=== PATIENT | female | born 1975 | race Caucasian/White ===

== ENCOUNTER 2016-04-09 16:39 | Emergency (ER) | payer OTHER ==
[2016-04-09 16:43] VITALS: RESP 16; TEMP 97.9
[2016-04-09] MEDS ORDERED: NS 1,000 ML IV ONE (17:05)
[2016-04-09 17:11] LABS: % IMMATURE GRANULYOCYTES 0.4 % (0.0-1.1); ABSOLUTE IMMATURE GRANULOCYTES 0.03 10^3/uL (0.00-0.10); ADD DIFF? NO; ADD MORPH? NO; ADD SCAN? NO; ATYPICAL LYMPHOCYTE FLAG 10 (0-99); FRAGMENT RBC FLAG 0 (0-99); HEMATOCRIT 39.9 % (38.0-47.0); HEMOGLOBIN 14.1 g/dL (12.6-16.3); LEFT SHIFT FLG 0 (0-99); LIPEMIA HEMOLYSIS FLAG 90 (0-99); MEAN CELL HEMOGLOBIN CONCENTR. 35.3 g/dL (32.4-36.7); MEAN CELL VOLUME 87.7 fL (81.5-99.8); MEAN PLATELET VOLUME 10.8 fL (8.7-11.7); PLATELET CLUMPS FLAG 10 (0-99); PLATELET COUNT 243 10^3/uL (150-400); RED BLOOD CELL COUNT 4.55 10^6/uL (4.18-5.33)
--- NOTE | 2016-04-09 17:13 | EDPHY ---
H & P Stated Complaint: ABDOMEN AND BACK PAIN WORSENING SINCE YESTERDAY Time Seen by Provider: 04/09/16 17:05 HPI/ROS: CHIEF COMPLAINT: Suprapubic pain HISTORY OF PRESENT ILLNESS: Patient is a 40-year-old female who comes to the emergency department complaining of suprapubic pain that has been gradually worsening over the last 24 hours. It is constant. It is moderate to severe. She has not had a fever. She has felt nauseous but has not vomited. No diarrhea constipation. No vaginal bleeding or discharge. She had her last menstrual period 17 days ago. She is trying to conceive and took Clomid. No urinary symptoms. No chest pain or shortness of breath. REVIEW OF SYSTEMS: Constitutional: denies: chills, fever, recent illness, recent injury EENTM: denies: blurred vision, double vision, nose congestion Respiratory: denies: cough, shortness of breath Cardiac: denies: chest pain, irregular heart rate, lightheadedness, palpitations Gastrointestinal/Abdominal: See HPI Genitourinary: denies: dysuria, frequency, hematuria, pain Musculoskeletal: denies: joint pain, muscle pain Skin: denies: lesions, rash, jaundice, bruising Neurological: denies: headache, numbness, paresthesia, tingling, dizziness, weakness Hematologic/Lymphatic: denies: blood clots, easy bleeding, easy bruising Immunologic/allergic: denies: HIV/AIDS, transplant EXAM: GENERAL: Well-appearing, well-nourished and in no acute distress. HEAD: Atraumatic, normocephalic. EYES: Pupils equal round and reactive to light, extraocular movements intact, sclera anicteric, conjunctiva are normal. ENT: TMs normal, nares patent, oropharynx clear without exudates. Moist mucous membranes. NECK: Normal range of motion, supple without lymphadenopathy or JVD. LUNGS: Breath sounds clear to auscultation bilaterally and equal. No wheezes rales or rhonchi. HEART: Regular rate and rhythm without murmurs, rubs or gallops. ABDOMEN: Mild suprapubic pain, no tenderness, Soft, normoactive bowel sounds. No guarding, no rebound. No masses appreciated. No pain with leg lift. Genitourinary: No discharge, no bleeding, no cervical motion tenderness, no adnexa masses BACK: No CVA tenderness, no spinal tenderness, step-offs or deformities EXTREMITIES: Normal range of motion, no pitting or edema. No clubbing or cyanosis. NEUROLOGICAL: Cranial nerves II through XII grossly intact. Normal speech, normal gait. 5/5 strength, normal movement in all extremities, normal sensation PSYCH: Normal mood, normal affect. SKIN: Warm, dry, normal turgor, no visible rashes or lesions. Source: Patient Exam Limitations: No limitations - Personal History LMP (Females 10-55): 22-28 Days Ago Current Tetanus Diphtheria and Acellular Pertussis (TDAP): Yes Tetanus Vaccine Date: 08/2014 - Medical/Surgical History Hx Asthma: No Hx Chronic Respiratory Disease: No Hx Diabetes: No Hx Cardiac Disease: No Hx Renal Disease: No Hx Cirrhosis: No Hx Alcoholism: No Hx HIV/AIDS: No Hx Splenectomy or Spleen Trauma: No Other PMH: STRESS RELATED PALPITATIONS, MIGRAINES,DEPRESSION, D & C/ MISCARAGE - Family History Significant Family History: Hypertension - Social History Smoking Status: Never smoked Alcohol Use: Sober Drug Use: None Constitutional: Initial Vital Signs Temperature (C) 36.6 C 04/09/16 16:40 Heart Rate 72 04/09/16 16:40 Respiratory Rate 16 04/09/16 16:40 Blood Pressure 106/74 04/09/16 16:40 O2 Sat (%) 96 04/09/16 16:40 O2 Delivery Mode Room Air Allergies/Adverse Reactions: vancomycin Allergy (Verified 04/09/16 16:43) Home Medications: Medication Instructions Recorded Hydrocodone/APAP 5/325 [[place] 1 - 2 each PO Q4 PRN #14 tab 04/09/16 5/325] No Known Home Meds 04/09/16 metroNIDAZOLE [Flagyl] 500 mg PO BID #14 tab 04/09/16 Medical Decision Making - Diagnostics Imaging: Study: Ultrasound of the: Pelvis Indication: Pelvic pain Results: US scan of the pelvis was obtained. The results of the study are positive for large right-sided ovarian cyst, no torsion. The study was read by the radiologist, Dr. Andrew Heard. I viewed the images myself on the PACS system. ED Course/Re-evaluation: Patient has a normal pelvic exam and normal lab work and urinalysis. I will proceed with ultrasound of her pelvis and appendix. She does not have any right lower quadrant tenderness pain with leg lift. No fever. She was seen by her OB earlier today who did not think that the Clomid most likely to be causing her pain. She finished it on day 9 after last menstrual period.. 7:25 p.m. the patient has a large ovarian cyst. This is likely the cause of her pain in the setting of Clomid also she has bacterial vaginosis. I will treat her with Flagyl. She continues to decline pain medication. Discussed follow up with OBGYN and indications for returning. She is happy with this plan and declines further workup or testing. Differential Diagnosis: Partial list of the Differential diagnosis considered include but were not limited to; ovarian cyst, ovarian torsion, urinary tract infection, BV and although unlikely based on the history and physical exam, I also considered STD , , ectopic, appendicitis. I discussed these differential diagnoses and the plan with the patient as well as the usual and expected course. The patient understands that the diagnosis is provisional and that in medicine we are not always correct and that further workup is often warranted. Usual and customary warnings were given. All of the patient's questions were answered. The patient was instructed to return to the emergency department should the symptoms at all worsen or return, otherwise to followup with the physician as we discussed. - Data Points Laboratory Results: Laboratory Results 04/09/16 17:00 04/09/16 17:00 04/09/16 04/09/16 04/09/16 18:05 17:00 16:45 WBC 8.56 10^3/uL (3.80-9.50) RBC 4.55 10^6/uL (4.18-5.33) Hgb 14.1 g/dL (12.6-16.3) Hct 39.9 % (38.0-47.0) MCV 87.7 fL (81.5-99.8) MCH 31.0 pg (27.9-34.1) MCHC 35.3 g/dL (32.4-36.7) RDW 12.0 % (11.5-15.2) Plt Count 243 10^3/uL (150-400) MPV 10.8 fL (8.7-11.7) Neut % (Auto) 69.9 % (39.3-74.2) Lymph % (Auto) 20.1 % (15.0-45.0) [place] % (Auto) 7.1 % (4.5-13.0) Eos % (Auto) 1.8 % (0.6-7.6) Baso % (Auto) 0.7 % (0.3-1.7) Nucleat RBC Rel Count 0.0 % (0.0-0.2) Absolute Neuts (auto) 5.99 10^3/uL (1.70-6.50) Absolute Lymphs (auto) 1.72 10^3/uL (1.00-3.00) Absolute Monos (auto) 0.61 10^3/uL (0.30-0.80) Absolute Eos (auto) 0.15 10^3/uL (0.03-0.40) Absolute Basos (auto) 0.06 10^3/uL (0.02-0.10) Absolute Nucleated RBC 0.00 10^3/uL (0-0.01) Immature Gran % 0.4 % (0.0-1.1) Immature Gran # 0.03 10^3/uL (0.00-0.10) Sodium 140 mEq/L (134-144) Potassium 3.9 mEq/L (3.5-5.2) Chloride 107 mEq/L (97-110) Carbon Dioxide 23 mEq/l (22-31) Anion Gap 10 mEq/L (8-16) BUN 12 mg/dL (7-23) Creatinine 0.7 mg/dL (0.6-1.0) Estimated GFR > 60 Glucose 100 mg/dL (70-100) Calcium 9.3 mg/dL (8.5-10.4) Total Bilirubin 0.6 mg/dL (0.1-1.4) Conjugated Bilirubin 0.4 mg/dL (0.0-0.5) Unconjugated Bilirubin 0.2 mg/dL (0.0-1.1) AST 21 IU/L (14-46) ALT 26 IU/L (9-52) Alkaline Phosphatase 60 IU/L (38-126) Total Protein 7.2 g/dL (6.3-8.2) Albumin 4.2 g/dL (3.5-5.0) Lipase 97.0 IU/L (23-300) Beta HCG, Qual NEGATIVE Beta HCG, Quant < 2.39 mIU/mL (0-4.83) Urine Color PALE YELLOW Urine Appearance CLEAR Urine pH 6.0 (5.0-7.5) Ur Specific [place] 1.011 (1.002-1.030) Urine Protein NEGATIVE (NEGATIVE) Urine Ketones NEGATIVE (NEGATIVE) Urine Blood NEGATIVE (NEGATIVE) Urine Nitrate NEGATIVE (NEGATIVE) Urine Bilirubin NEGATIVE (NEGATIVE) Urine Urobilinogen NEGATIVE EU (0.2-1.0) Ur Leukocyte Esterase NEGATIVE (NEGATIVE) Urine Glucose NEGATIVE (NEGATIVE) Trichomonas (Wet Prep) 2+ BACTERIA H C.trachomatis RNA (TMA) Pending N.gonorrhoeae RNA (TMA) Pending Medications Given: Discontinued Medications Acetaminophen/Hydrocodone Bitart ([place] 5/325mg Prepack#6) 1 btl TAKEHOME EDNOW ONE Stop: 04/09/16 19:39 Last Admin: 04/09/16 19:42 Dose: 1 btl Sodium Chloride (Ns) 1,000 mls @ 0 mls/hr IV ONCE ONE PRN Reason: Wide Open Stop: 04/09/16 17:06 Last Admin: 04/09/16 17:10 Dose: 1,000 mls Metronidazole (Flagyl) 500 mg PO EDNOW ONE PRN Reason: Protocol Stop: 04/09/16 18:55 Last Admin: 04/09/16 19:10 Dose: 500 mg Departure - Departure Disposition: Home, Routine, Self-Care Clinical Impression: Ovarian cyst, Bacterial vaginosis Condition: Fair Instructions: Hydrocodone/Acetaminophen (By mouth), Bacterial Vaginosis (ED), Ovarian Cyst (ED) Referrals: Sulma Martinez MD [Primary Care Provider] - As per Instructions Prescriptions: metroNIDAZOLE [Flagyl] 500 mg PO BID #14 tab Hydrocodone/APAP 5/325 [[place] 5/325] 1 - 2 each PO Q4 PRN #14 tab PRN Reason: Pain, Mild
[2016-04-09 17:15] LABS: COLOR PALE YELLOW; LEUKOCYTE ESTERASE,URINE NEGATIVE (NEGATIVE); NITRITE,URINE NEGATIVE (NEGATIVE)
[2016-04-09 17:28] LABS: ALANINE AMINOTRANSFERASE 26 IU/L (9-52); ALBUMIN 4.2 g/dL (3.5-5.0); ALKALINE PHOSPHATASE 60 IU/L (38-126); ANION GAP 10 mEq/L (8-16); ASPARTATE AMINOTRANSFERASE 21 IU/L (14-46); BILIRUBIN,TOTAL 0.6 mg/dL (0.1-1.4); BILIRUBIN-CONJUGATED 0.4 mg/dL (0.0-0.5); BILIRUBIN-UNCONJUGATED 0.2 mg/dL (0.0-1.1); CALCIUM 9.3 mg/dL (8.5-10.4); CARBON DIOXIDE 23 mEq/l (22-31); CHLORIDE 107 mEq/L (97-110); CREATININE 0.7 mg/dL (0.6-1.0); GLOMERULAR FILTRATION RATE > 60; GLUCOSE 100 mg/dL (70-100); POTASSIUM 3.9 mEq/L (3.5-5.2); SODIUM 140 mEq/L (134-144); TOTAL PROTEIN 7.2 g/dL (6.3-8.2)
[2016-04-09] MEDS ORDERED: metroNIDAZOLE 500 MG TAB PO ONE (18:54)
--- NOTE | 2016-04-09 19:33 | US ---
Ultrasound Abdominal Limited at 1840 hours History: Right lower quadrant pain, possible appendicitis. Technique: Graded compression with a high frequency linear transducer. Findings: A normal appendix is not identified. Small amount of free fluid in the right lower quadrant . Only normal loops of bowel are identified. Impression: Appendix not identified. Findings and recommendations discussed with Emergency Department physician, Dr. Odom at 1915 hour, today. Final report concurs with initial preliminary interpretation.
[2016-04-09 19:38] VITALS: BP 108/63; PULSE 65; O2SAT 93
[2016-04-09] MEDS ORDERED: HYDROCOD/APAP 5/325 PREPACK#6 BTL TAKEHOME ONE (19:38)
--- NOTE | 2016-04-09 19:39 | US ---
Ultrasound Pelvis Complete (Transabdominal and Endovaginal) Including Duplex/Doppler Imaging History: Right lower quadrant pain. Technique: Transabdominal and endovaginal ultrasound images were obtained. Endovaginal images obtai gee for better evaluation of the uterine myometrium and adnexa. Duplex/Doppler imaging of adnexa. Findings: Uterus measures 7 x 5 x 4 cm. Endometrial thickness is 5 mm. No definite uterine leiomyo godinez. Right ovary measures 6.7 x 3.8 x 7.5 cm. Left ovary measures 2.6 x 3.6 x 4.8 cm. A right ovarian si mple cyst, measuring 5.8 x 5 x 3.7 cm. Small amount of right lower quadrant free fluid. Color Dopp ler flow to both ovaries, without torsion. Impressions 1. Right ovarian simple cyst, measuring 5.8 x 5 x 3.7 cm. Recommend follow-up ultrasound imaging in 8-12 weeks. 2. Small amount of free fluid in the pelvis. 3. No ovarian torsion. Findings and recommendations discussed with Emergency Department physician, Dr. Odom, at 1915 hour s, on April 09, 2016. Final report concurs with initial preliminary interpretation.
[2016-04-12 14:24] LABS: CHLAMYDIA AMPLIFICATION GENPRB NEGATIVE (NEGATIVE)
== END 2016-04-09 19:47 | disposition home or self-care (01) ==
DX: N83.209 Unspecified ovarian cyst, unspecified side (principal); N76.0 Acute vaginitis

== ENCOUNTER → 2016-05-28 | Outpatient (CLI) | payer OTHER ==
[~2016-05-28] MED LIST: IOPAMIDOL (ISOVUE 370) 100 ML BTL IV ONE
== END ==
LOC: FIMAGING 13:20
PROVIDERS: ATTEND Obstetrics & Gynecology
PROC: 0UJ87ZZ Inspection of Fallopian Tube, Via Natural or Artificial Opening (ICD-10-PCS; principal; 2016-05-28)
DX: Z31.41 Encounter for fertility testing (principal)
CPT/HCPCS: Q9967

== ENCOUNTER → 2016-12-13 | Outpatient (CLI) | payer OTHER | LOC: FIMAGING 09:07 | PROVIDERS: ATTEND Internal Medicine | DX: Z12.31 Encounter for screening mammogram for malignant neoplasm of breast (principal); Z80.3 Family history of malignant neoplasm of breast | CPT/HCPCS: G0202 ==

== ENCOUNTER → 2017-03-09 | Outpatient (CLI) | payer OTHER | LOC: FIMAGING 08:09 | PROVIDERS: ATTEND Internal Medicine Endocrinology, Diabetes & Metabolism | DX: E03.1 Congenital hypothyroidism without goiter (principal) ==

== ENCOUNTER → 2017-12-14 | Outpatient (CLI) | payer OTHER | LOC: FIMAGING 09:57 | PROVIDERS: ATTEND Internal Medicine | DX: Z12.31 Encounter for screening mammogram for malignant neoplasm of breast (principal) ==

== ENCOUNTER → 2018-01-23 | Outpatient (CLI) | payer OTHER | LOC: BMCIMAGING 09:58 | PROVIDERS: ATTEND Emergency Medicine | DX: R13.10 Dysphagia, unspecified (principal) ==

== ENCOUNTER → 2018-01-25 | Outpatient (CLI) | payer OTHER | LOC: FIMAGING 10:37 | PROVIDERS: ATTEND Internal Medicine | DX: R92.8 Other abnormal and inconclusive findings on diagnostic imaging of breast (principal) ==